=== PATIENT | female | born 1995 | race Caucasian/White ===

== ENCOUNTER → 2016-12-23 | Outpatient (REF) | LOC: WSOH 14:34 | DX: Z02.89 Encounter for other administrative examinations (principal) ==

== ENCOUNTER → 2017-10-11 | Outpatient (CLI) | payer OTHER | LOC: COL.RAD 14:50 | DX: R10.31 Right lower quadrant pain (principal); D72.829 Elevated white blood cell count, unspecified | CPT/HCPCS: Q9967 ==

== ENCOUNTER 2018-09-29 16:25 | Emergency (ER) | payer OTHER ==
[~2018-09-29] VITALS: Ht 154.9 cm; Wt 63.9 kg
[2018-09-29 16:30] VITALS: BP 129/89; PULSE 82; TEMP 98.1
[2018-09-29] MEDS ORDERED: TOPAMAX 25MG25 M1 PO (16:36)
[2018-09-29] MEDS ORDERED: SINGULAIR 110 MG/TAB PO (16:37)
[2018-09-29] MEDS ORDERED: PROZAC40 MG PO (16:37)
[2018-09-29] MEDS ORDERED: ALLEGRA 180MG180 MG PO (16:38)
[2018-09-29] MEDS ORDERED: DOXYCYCLINE 10100 MG PO (17:03)
[2018-09-29] MEDS ORDERED: EPIPEN 2-PAK1 MG/ML IM (17:06)
== END 2018-09-29 17:42 | disposition home or self-care (01) ==
LOC: COL.ER 16:25
DX: S61.252A Open bite of right middle finger without damage to nail, initial encounter (principal); T78.2XXA Anaphylactic shock, unspecified, initial encounter; W53.11XA Bitten by rat, initial encounter